=== PATIENT | male | born 1975 | race African-American/Black ===

== ENCOUNTER 2018-07-04 20:58 | Inpatient (IN) ==
[2018-07-04] MEDS ORDERED: SODIUM CHLORIDE 0.9% 1,000 ML IV STA (23:08)
[2018-07-04] MEDS ORDERED: VANCOMYCIN INJ 1,500 MG in SODIUM CHLORIDE 0.9% 250 ML IV STA (23:08)
[2018-07-04] MEDS ORDERED: VANCOMYCIN INJ 1,500 MG in SODIUM CHLORIDE 0.9% 500 ML IV STA (23:31)
[2018-07-04 23:42] LABS: Basophils # 0.1 10*3/uL (0.0-0.2); Basophils % 0.3 % (0.0-0.8); Eosinophils # 0.7 10*3/uL (0.0-0.87); Eosinophils % 4.3 % (0.00-10.9); Hematocrit 38.5 VOL% (42.0-52.0); Hemoglobin 12.9 GM/DL (14.0-18.0); Immature Granulocytes % 0.6 %; Immature Granulocytes Absolute 0.09 #; Lymphocytes # 2.5 10*3/uL (1.4-4.0); Lymphocytes % 15.4 % (21.2-54.2); Mean Corpuscular HGB Conc 33.5 GM/DL (32-36); Mean Corpuscular Hemoglobin 32 PG (27-34); Mean Corpuscular Volume 94.4 FL (87-102); Mean Platelet Volume 9.2 FL (9.6-12.0); Monocytes % 6.4 % (1.7-12.7); Neutrophils # 11.7 10*3/uL (1.4-7.4); Platelet Count 325 T/CUMM (130-400); Red Blood Count 4.08 MC/CUMM (3.8-5.5)
[2018-07-05 00:02] LABS: Lactic Acid 1.2 MMOL/L (0.4-2.0)
[2018-07-05 00:03] LABS: Albumin 4.2 G/DL (3.4-5.0); Bilirubin,Total 0.6 MG/DL (0.2-1.0); Calcium 8.5 MG/DL (8.5-10.1); Osmolality,Calculated 271.8 MOS/KG (273-304); Potassium 3.7 MMOL/L (3.5-5.1); Total Protein 8.2 G/DL (6.4-8.3)
[2018-07-05] MEDS ORDERED: NICOTINE 14 MG/24 HR PATCH TRANSDERM PRN (03:21)
[2018-07-05] MEDS ORDERED: methylPREDNISolone SOD SUC 125 MG/2 ML VIAL IV ONE (03:21)
[2018-07-05] MEDS ORDERED: ONDANSETRON 4 MG/2 ML VIAL IV PRN (03:21)
[2018-07-05] MEDS ORDERED: ALBUTEROL/IPRATROPIUM 3 ML NEB RESP TX PRN (03:21)
[2018-07-05] MEDS ORDERED: methylPREDNISolone 4 MG TABLET PO SCH (03:21)
[2018-07-05] MEDS ORDERED: ACETAMINOPHEN 325 MG TABLET PO PRN (03:21)
[2018-07-05] MEDS ORDERED: PROMETHAZINE 25 MG/1 ML VIAL IM PRN (03:21)
[2018-07-05] MEDS: SODIUM CHLORIDE 0.9% 1,000 ML IV SCH ×2 (03:34→17:55)
[2018-07-05] MEDS: hydroCHLOROthiazide 12.5 MG CAPSULE PO SCH ×2 (03:38→10:07)
[2018-07-05] MEDS: amLODIPine 5 MG TABLET PO SCH ×2 (03:38→10:07)
[2018-07-05] MEDS: ALBUTEROL/IPRATROPIUM 3 ML NEB RESP TX SCH ×4 (03:50→19:23)
[2018-07-05 07:26] LABS: Risk Ratio 4.57
[2018-07-05] MEDS: DOCUSATE SODIUM 100 MG CAPSULE PO SCH ×2 (10:07→20:40)
[2018-07-05] MEDS: FLUCONAZOLE 200 MG TABLET PO SCH (10:07)
[2018-07-05] MEDS: ENOXAPARIN 40 MG/0.4 ML SYRINGE SUBCUT SCH (10:07)
[2018-07-05] MEDS: predniSONE 10 MG TABLET PO SCH (10:08)
[2018-07-05] MEDS: PANTOPRAZOLE 40 MG TABLET PO SCH (10:08)
[2018-07-05] MEDS ORDERED: LACTATED RINGERS 1,000 ML IV SCH (13:00)
[2018-07-05] MEDS: VANCOMYCIN INJ 1,500 MG in SODIUM CHLORIDE 0.9% 500 ML IV SCH ×2 (13:07→22:40)
[2018-07-05] MEDS: POLYETHYLENE GLYCOL POWDER 17 GM PACK PO SCH (15:45)
[2018-07-05] MEDS ORDERED: ALUMINUM/MAGNES/SIMETH MAX STR 30 ML UDCUP PO PRN (16:15)
[2018-07-05] MEDS ORDERED: KETOROLAC 15 MG/1 ML VIAL IV PRN (21:17)
[2018-07-06] MEDS: SODIUM CHLORIDE 0.9% 1,000 ML IV SCH ×2 (00:24→08:25)
[2018-07-06] MEDS: ALBUTEROL/IPRATROPIUM 3 ML NEB RESP TX SCH ×2 (00:32→07:20)
[2018-07-06] MEDS: hydroCHLOROthiazide 12.5 MG CAPSULE PO SCH (08:27)
[2018-07-06] MEDS: amLODIPine 5 MG TABLET PO SCH (08:28)
[2018-07-06] MEDS: PANTOPRAZOLE 40 MG TABLET PO SCH (08:28)
[2018-07-06] MEDS: POLYETHYLENE GLYCOL POWDER 17 GM PACK PO SCH (08:30)
[2018-07-06] MEDS: ENOXAPARIN 40 MG/0.4 ML SYRINGE SUBCUT SCH (08:30)
[2018-07-06] MEDS: predniSONE 10 MG TABLET PO SCH ×2 (08:30→13:07)
[2018-07-06] MEDS: DOCUSATE SODIUM 100 MG CAPSULE PO SCH ×3 (08:30→20:38)
[2018-07-06] MEDS: FLUCONAZOLE 200 MG TABLET PO SCH ×2 (08:30→12:40)
[2018-07-06] MEDS ORDERED: PROMETHAZINE INJ 25 MG in SODIUM CHLORIDE 0.9% 50 ML IV PRN (08:32)
[2018-07-06] MEDS ORDERED: diphenhydrAMINE 50 MG/1 ML VIAL IV PRN (08:32)
[2018-07-06] MEDS ORDERED: ONDANSETRON 4 MG/2 ML VIAL IV PRN (08:32)
[2018-07-06] MEDS ORDERED: MORPHINE 10 MG/1 ML VIAL IV PRN (08:32)
[2018-07-06] MEDS ORDERED: LIDOCAINE 1% 20 ML VIAL ONE (08:56)
[2018-07-06] MEDS ORDERED: MEPERIDINE 25 MG/1 ML VIAL ONE ×2 (09:26→09:29)
[2018-07-06] MEDS ORDERED: ONDANSETRON 4 MG/2 ML VIAL ONE (09:26)
[2018-07-06] MEDS ORDERED: hydrALAZINE 20 MG/1 ML VIAL ONE (09:29)
[2018-07-06] MEDS: MEPERIDINE 25 MG/1 ML VIAL IV PRN ×2 (09:30→09:40)
[2018-07-06] MEDS ORDERED: ROPIVACAINE 0.5% 30 ML VIAL ONE (09:46)
[2018-07-06] MEDS ORDERED: HYDROmorphone 2 MG/1 ML VIAL ONE (09:54)
[2018-07-06] MEDS ORDERED: PROMETHAZINE 25 MG/1 ML VIAL ONE (09:55)
[2018-07-06] MEDS ORDERED: PROPOFOL 200 MG/20 ML VIAL IV ONE (10:30)
[2018-07-06] MEDS ORDERED: KETAMINE 500 MG/10 ML VIAL ONE (10:30)
[2018-07-06] MEDS ORDERED: fentaNYL 100 MCG/2 ML VIAL ONE (10:31)
[2018-07-06] MEDS ORDERED: SODIUM CHLORIDE 0.9% 250 ML IV ONE (10:31)
[2018-07-06] MEDS ORDERED: MIDAZOLAM 2 MG/2 ML VIAL ONE (10:31)
[2018-07-06] MEDS ORDERED: LEVALBUTEROL 1.25 MG/3 ML NEB RESP TX PRN (11:30)
[2018-07-06] MEDS ORDERED: LABETALOL 100 MG/20 ML VIAL IV ONE ×2 (11:38→11:39)
[2018-07-06] MEDS ORDERED: hydrALAZINE 20 MG/1 ML VIAL IV ONE ×2 (11:40)
[2018-07-06] MEDS ORDERED: MORPHINE 4 MG/1 ML VIAL IV PRN (12:04)
[2018-07-06] MEDS: LACTATED RINGERS 1,000 ML IV SCH (12:35)
[2018-07-06] MEDS: VANCOMYCIN INJ 1,500 MG in SODIUM CHLORIDE 0.9% 500 ML IV SCH ×2 (12:40→22:50)
[2018-07-06] MEDS: MORPHINE 4 MG/1 ML VIAL IV PRN (21:52)
[2018-07-07] MEDS: LACTATED RINGERS 1,000 ML IV SCH ×4 (04:00→22:44)
[2018-07-07 05:58] LABS: Basophils % 0.2 % (0.0-0.8); Eosinophils % 0.1 % (0.00-10.9); Hematocrit 39.2 VOL% (42.0-52.0); Hemoglobin 13.2 GM/DL (14.0-18.0); Immature Granulocytes % 1.3 %; Immature Granulocytes Absolute 0.22 #; Lymphocytes # 2.5 10*3/uL (1.4-4.0); Lymphocytes % 14.7 % (21.2-54.2); Mean Corpuscular HGB Conc 33.7 GM/DL (32-36); Mean Corpuscular Hemoglobin 31 PG (27-34); Mean Corpuscular Volume 91.6 FL (87-102); Monocytes # 1.1 10*3/uL (0.11-0.8); Monocytes % 6.3 % (1.7-12.7); Neutrophils # 13.3 10*3/uL (1.4-7.4); Neutrophils % 77.4 % (38.7-73.9); Platelet Count 383 T/CUMM (130-400); Red Blood Count 4.28 MC/CUMM (3.8-5.5); Red Cell Distribution Width 12.3 % (9.3-17.3); White Blood Count 17.2 T/CUMM (4-12)
[2018-07-07 06:27] LABS: Calcium 9.2 MG/DL (8.5-10.1); Osmolality,Calculated 273.8 MOS/KG (273-304); Potassium 4.1 MMOL/L (3.5-5.1)
[2018-07-07] MEDS: ENOXAPARIN 40 MG/0.4 ML SYRINGE SUBCUT SCH (09:42)
[2018-07-07] MEDS: amLODIPine 5 MG TABLET PO SCH (09:44)
[2018-07-07] MEDS: DOCUSATE SODIUM 100 MG CAPSULE PO SCH ×2 (09:44→22:41)
[2018-07-07] MEDS: POLYETHYLENE GLYCOL POWDER 17 GM PACK PO SCH (09:44)
[2018-07-07] MEDS: FLUCONAZOLE 200 MG TABLET PO SCH (09:45)
[2018-07-07] MEDS: predniSONE 10 MG TABLET PO SCH (09:45)
[2018-07-07] MEDS: hydroCHLOROthiazide 12.5 MG CAPSULE PO SCH (09:45)
[2018-07-07] MEDS: PANTOPRAZOLE 40 MG TABLET PO SCH (09:45)
[2018-07-07] MEDS: MORPHINE 4 MG/1 ML VIAL IV PRN (10:31)
[2018-07-07] MEDS: VANCOMYCIN INJ 1,500 MG in SODIUM CHLORIDE 0.9% 500 ML IV SCH ×2 (12:45→22:38)
[2018-07-08 05:55] LABS: Basophils # 0.1 10*3/uL (0.0-0.2); Basophils % 0.3 % (0.0-0.8); Eosinophils # 0.1 10*3/uL (0.0-0.87); Eosinophils % 0.7 % (0.00-10.9); Hematocrit 39.4 VOL% (42.0-52.0); Immature Granulocytes % 1.5 %; Immature Granulocytes Absolute 0.22 #; Lymphocytes # 5.3 10*3/uL (1.4-4.0); Lymphocytes % 36.3 % (21.2-54.2); Mean Corpuscular Hemoglobin 31 PG (27-34); Mean Corpuscular Volume 92.5 FL (87-102); Mean Platelet Volume 9.1 FL (9.6-12.0); Monocytes # 1.1 10*3/uL (0.11-0.8); Monocytes % 7.8 % (1.7-12.7); Neutrophils # 7.8 10*3/uL (1.4-7.4); Neutrophils % 53.4 % (38.7-73.9); Platelet Count 361 T/CUMM (130-400); Red Blood Count 4.26 MC/CUMM (3.8-5.5); Red Cell Distribution Width 11.9 % (9.3-17.3); White Blood Count 14.7 T/CUMM (4-12)
[2018-07-08 06:17] LABS: Osmolality,Calculated 272.8 MOS/KG (273-304); Potassium 3.7 MMOL/L (3.5-5.1)
[2018-07-08] MEDS ORDERED: ALBUTEROL 2.5 MG/3 ML NEB RESP TX PRN (07:30)
[2018-07-08] MEDS: hydroCHLOROthiazide 12.5 MG CAPSULE PO SCH (08:52)
[2018-07-08] MEDS: POLYETHYLENE GLYCOL POWDER 17 GM PACK PO SCH (08:52)
[2018-07-08] MEDS: FLUCONAZOLE 200 MG TABLET PO SCH (08:53)
[2018-07-08] MEDS: predniSONE 10 MG TABLET PO SCH (08:53)
[2018-07-08] MEDS: DOCUSATE SODIUM 100 MG CAPSULE PO SCH ×2 (08:53→20:41)
[2018-07-08] MEDS: amLODIPine 5 MG TABLET PO SCH (08:54)
[2018-07-08] MEDS: PANTOPRAZOLE 40 MG TABLET PO SCH (08:55)
[2018-07-08] MEDS: ENOXAPARIN 40 MG/0.4 ML SYRINGE SUBCUT SCH (08:56)
[2018-07-08] MEDS: LACTATED RINGERS 1,000 ML IV SCH ×2 (10:06→20:40)
[2018-07-08] MEDS: VANCOMYCIN INJ 1,500 MG in SODIUM CHLORIDE 0.9% 500 ML IV SCH ×2 (11:07→23:10)
[2018-07-09 05:34] LABS: Basophils % 0.3 % (0.0-0.8); Eosinophils # 0.2 10*3/uL (0.0-0.87); Hematocrit 38.4 VOL% (42.0-52.0); Hemoglobin 12.8 GM/DL (14.0-18.0); Immature Granulocytes % 1.4 %; Immature Granulocytes Absolute 0.17 #; Lymphocytes # 5.3 10*3/uL (1.4-4.0); Lymphocytes % 44.2 % (21.2-54.2); Mean Corpuscular HGB Conc 33.3 GM/DL (32-36); Mean Corpuscular Hemoglobin 31 PG (27-34); Mean Corpuscular Volume 91.6 FL (87-102); Mean Platelet Volume 9.1 FL (9.6-12.0); Monocytes % 8.6 % (1.7-12.7); Neutrophils # 5.2 10*3/uL (1.4-7.4); Neutrophils % 43.5 % (38.7-73.9); Platelet Count 388 T/CUMM (130-400); Red Blood Count 4.19 MC/CUMM (3.8-5.5); White Blood Count 11.9 T/CUMM (4-12)
[2018-07-09 05:52] LABS: Calcium 8.8 MG/DL (8.5-10.1); Osmolality,Calculated 278.4 MOS/KG (273-304); Potassium 3.7 MMOL/L (3.5-5.1)
[2018-07-09] MEDS: DOCUSATE SODIUM 100 MG CAPSULE PO SCH (09:16)
[2018-07-09] MEDS: predniSONE 10 MG TABLET PO SCH (09:17)
[2018-07-09] MEDS: hydroCHLOROthiazide 12.5 MG CAPSULE PO SCH (09:17)
[2018-07-09] MEDS: POLYETHYLENE GLYCOL POWDER 17 GM PACK PO SCH (09:17)
[2018-07-09] MEDS: PANTOPRAZOLE 40 MG TABLET PO SCH (09:17)
[2018-07-09] MEDS: ENOXAPARIN 40 MG/0.4 ML SYRINGE SUBCUT SCH (09:17)
[2018-07-09] MEDS: amLODIPine 5 MG TABLET PO SCH (09:17)
[2018-07-09 11:55] VITALS: BP 146/94
== END 2018-07-09 13:05 | disposition home or self-care (01) | DRG 580 ==
LOC: N.EDINP 20:58 → N.ED 20:58 → N.2E 07-05 03:16 → SUATTDRO 07-06 12:45
PROVIDERS: ADMIT Internal Medicine; ATTEND Internal Medicine